=== PATIENT | female | born 1990 | race African-American/Black ===

== ENCOUNTER 2020-04-29 17:11 | Emergency (ER) | payer SELFPAY ==
[~2020-04-29] VITALS: Ht 167.6 cm; Wt 81.6 kg
[2020-04-29 17:20] VITALS: BP 104/76
--- NOTE | 2020-04-29 17:20 | NUR ---
Patient ambulated with steady gait to bed 4.
--- NOTE | 2020-04-29 17:31 | NUR ---
30 Y/O FEMALE A&OX4 C/O GENERALIZED RASH X3 DAYS, BEEN TAKING BENADRYL AT HOME WITH NO IMPROVEMENT. DENIES ANY SOB OR THROAT SWELLING. PT STATES SHE IS VISITING FROM [place] AND HAD COMPLETED A WEEK OF CEFDINIR ABX X1 DAY AGO FOR PREVIOUS UTI. BILATERAL HANDS +2 NON-PITTING EDEMA. DENIES PMH NKA
--- NOTE | 2020-04-29 17:45 | NUR ---
Spoke with Saray Dunham, pt daughter [phone] for updates.
[2020-04-29 17:49] VITALS: BP 104/76
--- NOTE | 2020-04-29 17:49 | NUR ---
Patient discharged with v/s stable. Written and verbal after care instructions given and explained. Patient alert, oriented and verbalized understanding of instructions. Ambulatory with steady gait. All questions addressed prior to discharge. ID band removed. Patient advised to follow up with PMD. Rx of prednisone 20mg tabs 2 daily Po, atarax 25mg 1 tab q8h PO PRN itchiness/rash given. Patient educated on indication of medication including possible reaction and side effects. Opportunity to ask questions provided and answered.
== END 2020-04-29 17:49 | disposition home or self-care (01) ==
LOC: MED 17:11
DX: L50.3 Dermatographic urticaria (principal)
CPT/HCPCS: 99283